=== PATIENT | male | born 1975 | race Caucasian/White ===

== ENCOUNTER 2018-11-28 12:02 | Emergency (ER) | payer BC ==
[2018-11-28] MEDS ORDERED: IPRATROPIUM/ALBUTEROL SULFATE 3 ML SOLUTION IH ONE (12:35)
[2018-11-28] MEDS ORDERED: DEXAMETHASONE SOD PHOSPHATE 10MG/ML 1ML VIAL ONE (12:42)
[2018-11-28 12:55] LABS: RAPID GROUP A STREP NEGATIVE (NEGATIVE)
== END 2018-11-28 13:22 | disposition home or self-care (01) ==
LOC: EDH 12:02
DX: J06.9 Acute upper respiratory infection, unspecified (principal); Z72.0 Tobacco use; Z88.0 Allergy status to penicillin
CPT/HCPCS: 71046; 87804 ×2; 87880; 94640; 96372; 99285; J1100

== ENCOUNTER 2018-12-09 13:22 | Emergency (ER) | payer BC ==
[2018-12-09 14:41] LABS: RAPID GROUP A STREP NEGATIVE (NEGATIVE)
== END 2018-12-09 15:02 | disposition home or self-care (01) ==
LOC: EDH 13:22
DX: J09.X2 Influenza due to identified novel influenza A virus with other respiratory manifestations (principal); R50.81 Fever presenting with conditions classified elsewhere; Z88.0 Allergy status to penicillin; Z72.0 Tobacco use
CPT/HCPCS: 87804; 87880

== ENCOUNTER 2019-10-02 21:50 | Emergency (ER) | payer BC ==
[2019-10-02 22:37] LABS: BASOPHILS % (AUTO) 0.5 % (0.0-5.0); EOSINOPHILS % (AUTO) 2.3 % (0.0-8.0); LYMPHOCYTES % (AUTO) 34.9 % (21.0-51.0); MEAN CORPUSCULAR HEMOGLOBIN 29.8 pg (27.0-33.0); MEAN CORPUSCULAR VOLUME 90.5 fL (79-99); MONOCYTES % (AUTO) 10.7 % (3.0-13.0); NEUTROPHILS % (AUTO) 50.8 % (40.0-77.0); PLATELET COUNT (AUTO) 317 K/uL (130-400); RED BLOOD CELL COUNT(AUTO) 4.86 MIL/uL (4.50-6.20); RED CELL DISTRIBUTION WIDTH 12.6 % (11.0-15.5); WHITE BLOOD COUNT (AUTO) 9.3 K/uL (4.8-10.8)
[2019-10-02 22:57] LABS: CARBON DIOXIDE 32 mmol/L (21-32); CHLORIDE 104 mmol/L (101-111); CREATININE 0.8 mg/dL (0.5-1.5); GLOMERULAR FILTR. RATE CALC 112 mL/min (>60); GLUCOSE,RANDOM 82 mg/dL (70-105); POTASSIUM 3.9 mmol/L (3.5-5.1); SODIUM SERUM 142 mmol/L (136-145); UREA NITROGEN, BLOOD 19 mg/dL (7-18)
[2019-10-02 22:58] LABS: ALANINE AMINOTRANSFERASE 77 U/L (12-78); ALBUMIN 3.8 g/dL (3.5-5.0); ALCOHOL, BLOOD < 3 mg/dL (0-10); AMYLASE 54 U/L (25-115); ASPARTATE AMINOTRANSFERASE 36 U/L (10-37); BILIRUBIN,TOTAL 0.2 mg/dL (0.2-1.0); CREATINE KINASE, TOTAL 124 U/L (21-232); LIPASE 103 U/L (114-286); TOTAL PROTEIN, SERUM 7.3 g/dL (6.0-8.3)
[2019-10-02] MEDS ORDERED: KETOROLAC TROMETHAMINE 30MG/ML ONE (22:58)
[2019-10-02] MEDS ORDERED: SODIUM CHLORIDE 0.9% 1000ML 1,000 ML IV ONE (22:58)
[2019-10-02 23:04] LABS: INR 0.88 (0.85-1.15); PARTIAL THROMBOPLASTIN TIME 26.9 SEC (26.3-35.5); PROTHROMBIN TIME 9.3 SEC (9.6-11.6)
[2019-10-02] MEDS ORDERED: CYCLOBENZAPRINE HCL 10 MG TABLET ONE (23:43)
[2019-10-03 00:32] LABS: APPEARANCE,URINE Clear (CLEAR); BILIRUBIN,URINE Negative (NEGATIVE); COLOR,URINE Yellow (YELLOW); GLUCOSE, URINE (UA) Negative (NEGATIVE); KETONES,URINE Negative (NEGATIVE); LEUKOCYTE ESTERASE ,URINE Negative (NEGATIVE); NITRATE,URINE Negative (NEGATIVE); OCCULT BLOOD,URINE Negative (NEGATIVE); PH,URINE 6.5 (5.0-8.0); PROTEIN,URINE Negative (NEGATIVE); UROBILINOGEN,URINE 0.2 mg/dL (0.2-1.0)
[2019-10-03 00:50] LABS: AMPHET/METH SCREEN,URINE NEGATIVE (NEGATIVE); BARBITURATE SCREEN, URINE NEGATIVE (NEGATIVE); BENZODIAZEPINES SCREEN,URINE POSITIVE (NEGATIVE); CANNABINOID SCREEN,URINE NEGATIVE (NEGATIVE); COCAINE SCREEN,URINE POSITIVE (NEGATIVE); OPIATE SCREEN,URINE NEGATIVE (NEGATIVE); PHENCYCLIDINE SCREEN,URINE NEGATIVE (NEGATIVE)
== END 2019-10-03 03:32 | disposition home or self-care (01) ==
LOC: EDH 21:50
DX: S06.0X1A Concussion with loss of consciousness of 30 minutes or less, initial encounter (principal); S60.511A Abrasion of right hand, initial encounter; M54.2 Cervicalgia; Z98.890 Other specified postprocedural states; Z72.0 Tobacco use; W18.39XA Other fall on same level, initial encounter; Y93.89 Activity, other specified; Y92.89 Other specified places as the place of occurrence of the external cause; Y99.8 Other external cause status
CPT/HCPCS: 36415; 70450; 71045; 72125; 80053; 80305; 81003; 82150; 82550; 83690; 84484; 85025; 85610; 85730; 93005; 96361; 96374; 99291; G0480; J1885; J7030